=== PATIENT | female | born 1960 ===

== ENCOUNTER → 2025-02-12 17:11 | Outpatient (ROUT) | payer SELFPAY ==
[2025-02-12 17:27] LABS: Add Manual Diff / Slide Review NO; Hematocrit 35.9 % (36-46); Hemoglobin 11.9 g/dL (12.0-16.0); Lymphocytes Absolute Auto 3000 /uL (1100-4500); Mean Corpuscular HGB Conc 33.2 % (30-36); Mean Corpuscular Hemoglobin 27.4 PG (26-34); Mean Corpuscular Volume 82.7 fL (80-100); Platelet Count 346 X10^3/uL (150-400)
[2025-02-12 17:35] LABS: Alanine Aminotransferase 15 IU/L (<35); Albumin 4.0 g/dL (3.5-5.0); Albumin Globulin Ratio 1.0 (1.0-2.8); Alkaline Phosphatase 86 U/L (38-126); Blood Urea Nitrogen 13 mg/dL (7-17); Estimated Glomerular Filt Rate > 60 mL/min (>60); Globulin 4.1 g/dL (1.7-4.1); HEMOLYSIS 16 (0-50); Total Protein 8.1 g/dL (6.3-8.2)
== END ==
DX: R78.81 Bacteremia (principal); B95.62 Methicillin resistant Staphylococcus aureus infection as the cause of diseases classified elsewhere; M86.18 Other acute osteomyelitis, other site
CPT/HCPCS: 80076; 82565; 84520; 85025; 86140